=== PATIENT | female | born 1990 | race Caucasian/White ===

== ENCOUNTER 2016-11-11 06:26 | Inpatient (IN) ==
[~2016-11-11 06:26] MED LIST: Famotidine 20 MG/2 ML VIAL IVP PRN; Naloxone 0.4 MG/ML INJ IVP PRN; Ondansetron 4 MG/2 ML VIAL IVP PRN
[2016-11-11] MEDS ORDERED: Ringers Solution, Lactated 1,000 ML IVC SCH (06:30)
--- NOTE | 2016-11-11 06:31 | OB/GYN History & Physical ---
Date of Encounter: 11/11/16 Time of Encounter: 06:28 Assessment and Plan (1) 39 weeks gestation of Current visit: Yes Status: Acute admit for labor (2) Spontaneous onset of labor Current visit: Yes Status: Acute Continue labor management Patient may have Nubain or epidural for pain if desires. History of Present Illness Chief complaint: Spontaneous labor HPI: Ms. Ku is a 26 year old female at 39w3d presents to labor and delivery with complaints of contractions that started around 2200 on the . Patient denies any vaginal bleeding but reports increase in discharge. Patient reports + FM. Patient was 3cm when she was first examined. Patient is now with bulging membranes. Will admit for delivery. Blood type is A+, Rubella: Immune, Hep B: Nonreactive, GBS: Negative. Past Med Surg Social Fam HX - Past Medical History Source: patient Medical history: no medical history Psychiatric history: no psych history - Past Surgical History Surgical History: no surgical history - Social History Smoking Status: Never smoker Smokeless Tobacco Status: No Alcohol use: none Drug use: none Current living situation: Home - Independent Activity Level: Independent ambulation Recent Out of Country Travel Within the Last 8 Weeks: No Exposure or Possible Exposure to Illness During Travel: No - Family History Mother Living Status: Still Living Obstetrical History - Pregnancies : 3 Para: 1 Term: 1 : 0 Ab's: 1 Livin Medications and Allergies Vit/Iron Fumarate/FA [ Tablet] 1 tab PO DAILY 11/11/16 [History ] Allergies Penicillins Allergy (Verified 11/11/16 03:15) Hives Review of System OB - Constitutional Constitutional ROS IM: no chills, no fever(s), no weakness - Cardiovascular Cardiovascular: no chest pain, no edema, no leg edema, no palpitations, no syncope - Respiratory Respiratory: no cough - Gastrointestinal Gastrointestinal: no constipation, no diarrhea, no heartburn, no nausea, no vomiting - Genitourinary Genitourinary: vaginal discharge, no abnormal vaginal bleeding, no dysuria, no flank pain, no urinary frequency, no urinary urgency, no vaginal odor, no vaginal pruritis Exam - Constitutional Constitutional: well developed, well nourished, no acute distress, average body habitus - HEENT HEENT: Normocephaly, Mucus Membranes Moist - Neck Neck exam: full ROM, supple - Lungs Respiratory exam: CTAB - Cardiovascular Cardiovascular exam: RRR, +S1, +S2 - Abdomen Abdomen: Present: bowel sounds normal, gravid, non tender - Extremities Extremities exam: full ROM, normal capillary refill, normal inspection Deep Tendon Reflex Grade: 2+ Normal - Cervix Dilation: 6 Effacement: 90 Station: -1 - Uterus Uterus exam: Present: normal size, normal contour - Anus/Rectum Anus/Rectum: Present: normal perianal skin - Comments Comments: FHR 145bpm moderate variability, +15x15 accels no decels noted. CAt. 1 tracing. Contractions are 3-4 min apart. Results All other labs normal. - VTE Reasons for not Prescribing Prophylaxis: Treatment not Indicated - Low risk for VTE
[2016-11-11] MEDS ORDERED: *HR* Nalbuphine 20 MG/ML AMPUL IVP PRN (06:36)
[2016-11-11 06:49] LABS: Basophils % 0.3 %; Eosinophils # 0.1 K/mcL (0.0-0.6); Eosinophils % 0.5 %; Hematocrit 34.5 % (35.3-44.9); Hemoglobin 11.4 g/dL (11.5-15.4); Immature Granulocytes % 1.6 % (0-4); Lymphocytes # 2.7 K/mcL (0.6-4.6); Lymphocytes % 19.8 %; Mean Corpuscular Hemoglobin 30.6 pg (28.0-33.3); Mean Corpuscular Volume 92.5 fL (83.0-100.0); Mean Platelet Volume 10.1 fL (9.4-12.4); Monocytes # 0.7 K/mcL (0.0-1.3); Monocytes % 4.9 %; Neutrophils # 9.9 K/mcL (1.6-8.9); Platelet Count 224 K/mcL (140-400); Red Blood Count 3.73 M/mcL (3.82-4.97); Red Cell Distribution Width 13.2 % (11.5-14.5); Segmented Neutrophils % 72.9 %
[2016-11-11] MEDS ORDERED: *HR* FentaNYL (PF) 100 MCG/2 ML VIAL ONE (07:44)
[2016-11-11] MEDS ORDERED: Bupivacaine-MPF 0.25% 10 ML VIAL ONE (07:45)
[2016-11-11] MEDS ORDERED: Bupivacaine-MPF 0.25% 10 ML VIAL EP ONE (07:48)
[2016-11-11] MEDS ORDERED: *HR* FentaNYL (PF) 100 MCG/2 ML VIAL EP ONE (07:48)
[2016-11-11] MEDS ORDERED: EPHEDrine 50 MG/ML VIAL ONE (07:49)
[2016-11-11] MEDS ORDERED: Epidural Premix (fent/bupiv) 0 ML EP ONE (07:51)
[2016-11-11] MEDS ORDERED: Epidural Premix (fent/bupiv) 110 ML EP ONE ×2 (07:52→08:19)
[2016-11-11] MEDS ORDERED: Epidural Premix (fent/bupiv) 110 ML EP SCH (08:00)
--- NOTE | 2016-11-11 09:42 | Anesthesia Evaluation PreOp ---
Date of Encounter: 11/11/16 Time of Encounter: 08:00 - Past History Planned Operation: epidural Cardiac History: Denies any Significant Hx Pulmonary History: Denies Any Significant HX [employer] History: Denies Any Significant HX Other Medical History: Denies Any Significant HX Anesthesia History: No Prior Anesthetic Complications (vag delivery x1) : Yes Alcohol Use: none Drug use: none Medications and Allergies Vit/Iron Fumarate/FA [ Tablet] 1 tab PO DAILY 11/11/16 [History ] Allergies Penicillins Allergy (Verified 11/11/16 03:15) Hives - Meds/Allergy Pre-op Review Medications Reviewed: Yes Allergies Reviewed: Yes Beta Blockers on Current Med List: No Anesthesia Results - Labs 11/11/16 06:38 Anesthesia Exam 3 Vital Signs Time 0800 BP 130/81 Pulse 105 Resp 16 O2 Sat 100 Height: 64 Weight: 191 pounds NPO (# of Hours): clears Pain Scale: 6 Pain Scale Used: Numeric (1 - 10) - HEENT Pupil (Motor): Pupils equal Mallampati: II Teeth: Normal Oral Opening: Greater than 3 - [employer] LOC: Oriented [employer] Motor: Normal RUE, Normal LUE, Normal RLE, Normal LLE, Normal Face [employer] Sensory: Normal: RUE, LUE, RLE, LLE, Face - Cardiac Rhythm: Regular Murmur: None JVD: No Carotid Bruit: No - Pulmonary Breath Sounds: bilateral Clear Respiratory Effort: Symmetrical Anesthesia Assess/Plan ASA Score: 2 Modified [place] Scale for Level of Consciousness: Cooperative, oriented, and tranquil Anesthetic Plan: Regional Monitoring Plan: Standard Monitors Recovery Plan: Other
--- NOTE | 2016-11-11 09:46 | Anesthesia Procedures ---
Date of Encounter: 11/11/16 Time of Encounter: 08:34 Procedures: Anesthesia - Epidural/Spinal Patient ID/Chart reviewed: Yes Patient examined: Yes OB Eval: Gestational age: 39 weeks 3 days OB Eval: : 2 OB Eval: Hx Para: 1 OB Eval: Dilated at (cm): 6 OB Eval: Contractions: Non-stressed pattern Consent Obtained: Yes Supplemental Oxygen: None/Room Air Site Prep: Aseptic Technique, Sterile prep and drape, Povidone-Iodine 1% Patient position: upright Local Anesthetic: Lidocaine 1% Amount of Local Anesthetic used: 3 Touhy Needle Gauge: 18 Touhy Needle Depth (cm): 5 Catheter Depth at Skin (cm): 10 Test Dose (1.5% Lido + Epi): Volume given (mls): 3 Test Dose Result: Negative Loading Dose: 0.25% Marcaine (mls): 5 Loading Dose: Fentanyl (mcg): 100 Loading Dose: Other: 3 ml saline Loading Dose Administered: Thru Catheter Infusion Med: 0.125% Bupivacaine w/ 2 mcg/ml Fentanyl Infusion Rate (mls/hr): [address]: Tegaderm, Tape Interspace Used: L3-L4 Loss of Resistance (MALACHI): Yes (air) Blood: No CSF: No Paresthesia: No Procedure: 3 Vital Signs Time 0834 start 0847 cath 0848 test 0858 bolus 0905 BP 120/71 116/73 110/72 117/72 Pulse 107 95 118 105 Resp 16 16 16 16 O2 Sat 100 100 100 100 heart tones 130-140
[2016-11-11] MEDS ORDERED: Oxytocin 20 units/ LR 1000 mL 20 UNIT/1,000 ML BAG IVC ONE ×3 (09:49→18:34)
--- NOTE | 2016-11-11 09:56 | Anesthesia Progress Note ---
Date of Encounter: 11/11/16 Time of Encounter: 09:30 Anesthesia Note - Note Note: 11/11/16 09:53 patient experiencing numbness in right chest region and in right shoulder, epidural pump stopped, pt states not hard to take a deep breath vs stable, t4 sensory loss on right side, left side t8 level, patient able to move legs well, hob elevated. pt comfortable.
--- NOTE | 2016-11-11 09:58 | OB Labor Progress Note ---
Date of Encounter: 11/11/16 Time of Encounter: 09:55 Labor Progress Note - Subjective Subjective: Patient resting in bed. Epidural in place. Patient denies any needs at this time. Discussed POC with patient. Patient denies any questions or concerns. - Cervix Cervix: 7/90/0 - Heart Tones Heart Tones: 135 bpm moderate amount of variability +15x15 accels no decels noted. - [place]: 7-8 min apart - Interventions Interventions: SVE, AROM moderate amount of clear fluid. Patient tolerated well. - Plan Plan: Continue labor management.
--- NOTE | 2016-11-11 12:48 | OB Labor Progress Note ---
Date of Encounter: 11/11/16 Time of Encounter: 12:46 Labor Progress Note - Subjective Subjective: Patient resting comfortable in bed. Patient denies any needs at this time. - Cervix Cervix: 8/100/0 - Heart Tones Heart Tones: 135 bpm moderate variability + 15x15 accels early decels noted. - [place]: 3-5 min apart - Interventions Interventions: SVE - Plan Plan: Continue labor management.
--- NOTE | 2016-11-11 16:30 | OB/GYN Procedure Note ---
Delivery - Delivery Date: 11/11/16 Provider: Mary Jane Gilbert Intrapartum events: none Delivery induction: none Delivery augmentation: rupture of membranes Delivery monitor: external FHT, external uterine Anesthesia: epidural Estimated Blood Loss: 100 - (s) Infant A Delivery Date: 11/11/16 Infant Delivery Time: 15:59 Presentation: vertex Position: KAYLEIGH Route of delivery: Gender: Male Viability: Viable Pounds: 7 Ounces: 6 Weight Gram: 3445 kg at 1 minute: 8 at 5 mins: 9 Shoulder Dystocia: not encountered Placenta: spontaneous Cord: 3 umbilical vessels - Repair Episiotomy: none Laceration Description: Periurethral (right periurethral repaired with 3-0 vicryl) - Complications Delivery complications: none Delivery comments: Called to patient's room. Patient reports feeling pressure. Patient was complete and +2 station. Patient's fonseca catheter was removed, patient was placed in stirrups, vaginal prep was completed. Patient began pushing with contractions. Spontaneous delivery of male infant. No nuchal cord, shoulder dytocia or meconium was encountered. Infant was placed on maternal abdomen. Cord was clamped and cut after pulsations ceased. 3 vessel cord was noted. A right periurethral laceration was repaired with 3-0 vicryl. Placental was spontaneously delivered and intact. Pericare provided. placed skin to skin with mother. Both mother and infant stable in LDR for recovery. - Disposition Mom disposition: stable in LDR disposition: stable in LDR
[2016-11-11] MEDS ORDERED: Acetaminophen 325 MG TABLET PO PRN (18:34)
[2016-11-11] MEDS ORDERED: Lanolin 7 G OINT...G. TP PRN (18:34)
[2016-11-11] MEDS ORDERED: Oxytocin 20 units/ LR 1000 mL 20 UNIT/1,000 ML BAG IV SCH (18:34)
[2016-11-11] MEDS ORDERED: Benzocaine/Menthol 56 GM AEROSOL SPRAY TP PRN (18:34)
[2016-11-11] MEDS ORDERED: *HR* HYDROcodone/Acet 5/325 mg TABLET PO PRN (18:34)
[2016-11-11] MEDS: Ibuprofen 600 MG TABLET PO PRN (20:44)
[2016-11-12] MEDS: Ibuprofen 600 MG TABLET PO PRN ×2 (02:28→14:03)
[2016-11-12] MEDS ORDERED: Prenatal Vit/FA 1 EACH TABLET PO SCH (09:00)
--- NOTE | 2016-11-12 09:34 | Discharge Summary ---
Date of Encounter: 11/12/16 Time of Encounter: 09:31 - Discharge Diagnosis (1) Normal vaginal delivery Priority: Primary Status: Acute Comments: Meeting milestones - Discharge Medications Prescriptions: Ibuprofen [Motrin] 600 mg PO Q6HR PRN #60 tablet PRN Reason: Cramping Docusate [Colace] 100 mg PO BID #60 capsule Home Medications: Vit/Iron Fumarate/FA [ Tablet] 1 tab PO DAILY 11/11/16 [History ] Acetaminophen [Tylenol] 650 mg PO Q6HR PRN #0 tablet 11/12/16 [Rx] Benzocaine/Menthol Whitney [Dermoplast Whitney] 1 appl TP QID PRN #0 aerosol [Rx] Docusate [Colace] 100 mg PO BID #60 capsule 11/12/16 [Rx] Ibuprofen [Motrin] 600 mg PO Q6HR PRN #60 tablet 11/12/16 [Rx] Lanolin [Lansinoh] 1 appl TP TID PRN #0 oint...g. 11/12/16 [Rx] Allergies/Adverse Reactions: Allergies Penicillins Allergy (Verified 11/11/16 03:15) Hives Data Procedures and tests throughout hospitalization: Laboratory Tests 11/11/16 06:38 WBC 13.5 H RBC 3.73 L Hgb 11.4 L Hct 34.5 L MCV 92.5 MCH 30.6 MCHC 33.0 RDW 13.2 Plt Count 224 MPV 10.1 Immature Gran % 1.6 Seg Neutrophils % 72.9 Lymphocytes % 19.8 Monocytes % 4.9 Eosinophils % 0.5 Basophils % 0.3 Neutrophils # 9.9 H Lymphocytes # 2.7 Monocytes # 0.7 Eosinophils # 0.1 Basophils # 0.0 Date of admission: 11/11/16 06:26 Primary care physician: PCP NO Consults: 11/11/16 18:34 Consult to Clerical Manager [CONS] Routine Comment: Vaginal delivery, consult needed Discharging clinician: Mary Ann Resendiz Anticipated date of discharge: 11/12/16 - Patient Status Disposition: Home, Self-Care Condition: Good Functional capacity at discharge: independent ambulation Overall status at discharge: patient is back to baseline - Discharge Instructions Follow Up With: NO,PCP [Primary Care Provider] - Shoemaker,Mary Jane A, CNM [Advanced Practice Nurse] - - Diet and Activity Activity: increase activity as tolerated Diet: regular diet Hospital Course Reason for admission: active labor Episiotomy: none Laceration: other (periuretheral ) Other procedures: none complications: none Discharge diagnosis: IUP at term delivered baby: male Hospital course: [place] - Delivery Date: 11/11/16 Provider: Mary Jane Gilbert Intrapartum events: none Delivery induction: none Delivery augmentation: rupture of membranes Delivery monitor: external FHT, external uterine Anesthesia: epidural Estimated Blood Loss: 100 - Infant (s) A Delivery Date: 11/11/16 Infant Delivery Time: 15:59 Presentation: vertex Position: [place] Route of delivery: Gender: Male Viability: Viable Pounds: 7 Ounces: 6 Weight Gram: 3445 kg at 1 minute: 8 at 5 mins: 9 Shoulder Dystocia: not encountered Placenta: spontaneous Cord: 3 umbilical vessels - Repair Episiotomy: none Laceration Description: Periurethral (right periurethral repaired with 3-0 vicryl) - Complications Delivery complications: none Delivery comments: Called to patient's room. Patient reports feeling pressure. Patient was complete and +2 station. Patient's fonseca catheter was removed, patient was placed in stirrups, vaginal prep was completed. Patient began pushing with contractions. Spontaneous delivery of male infant. No nuchal cord, shoulder dytocia or meconium was encountered. was placed on maternal abdomen. Cord was clamped and cut after pulsations ceased. 3 vessel cord was noted. A right periurethral laceration was repaired with 3-0 vicryl. Placental was spontaneously delivered and intact. Pericare provided. placed skin to skin with mother. Both mother and stable in LDR for recovery. - Disposition Mom disposition: stable in LDR disposition: stable in LDR Time Attestation: Total time spent providing and/or coordinating discharge services: Time Spent: Less than 30 minutes Exam - Constitutional Vitals: Temp Pulse Resp BP Pulse Ox 98.4 F 85 16 107/71 98 11/12/16 08:24 11/12/16 08:24 11/12/16 08:24 11/12/16 08:24 11/12/16 05:05 General appearance IM: A&O X 3, no acute distress - Respiratory Respiratory exam: Present: CTAB. Absent: respiratory distress - Cardiovascular Cardiovascular exam IM: Present: RRR, +S1, +S2 - GI/Abdominal GI/Abdominal exam IM: soft - Uterine Tone: Firm Uterus Position: At Umbilicus - Extremities Exam Extremities exam IM: Present: normal inspection - Neurological Exam Neurological exam: normal gait, oriented X3 - Psychiatric Additional comments: reports good mood
[2016-11-12 16:18] VITALS: BP 112/74
== END 2016-11-12 17:00 | disposition home or self-care (01) | DRG 775 ==
LOC: 1NENULAB → 1NENUOBS 18:33
PROVIDERS: ADMIT Advanced Practice Midwife; ATTEND Advanced Practice Midwife

== ENCOUNTER 2019-08-02 21:17 | Inpatient (IN) ==
[2019-08-02] MEDS ORDERED: Clindamycin 900 MG/50 ML 900 MG/50 ML IV.SOLN IVPB ONE (21:27)
[2019-08-02] MEDS ORDERED: Famotidine 20 MG/2 ML VIAL IVP ONE (21:27)
[2019-08-02] MEDS ORDERED: Gentamicin 340 MG in 0.9 % Sodium Chloride 100 ML IVPB ONE (21:27)
[2019-08-02] MEDS ORDERED: Oxytocin 20 units/ LR 1000 mL 20 UNIT/1,000 ML BAG IVC ONE (21:27)
[2019-08-02] MEDS ORDERED: Metoclopramide 10 MG/2 ML VIAL IVP ONE (21:27)
[2019-08-02] MEDS ORDERED: Ringers Solution, Lactated 1,000 ML IVC SCH (21:30)
[2019-08-02] MEDS ORDERED: Oxytocin 20 units/ LR 1000 mL 20 UNIT/1,000 ML BAG IVC SCH ×2 (21:30→23:45)
[2019-08-02 21:53] LABS: Basophils % 0.3 %; Eosinophils # 0.1 K/mcL (0.0-0.6); Eosinophils % 0.4 %; Immature Granulocytes % 1.1 % (0-4); Lymphocytes # 2.2 K/mcL (0.6-4.6); Lymphocytes % 19.9 %; Mean Corpuscular HGB Conc 35.3 g/dL (31.6-35.5); Mean Corpuscular Hemoglobin 33.1 pg (28.0-33.3); Mean Corpuscular Volume 93.9 fL (83.0-100.0); Mean Platelet Volume 10.4 fL (9.4-12.4); Monocytes # 0.7 K/mcL (0.0-1.3); Monocytes % 5.9 %; Neutrophils # 8.1 K/mcL (1.6-8.9); Platelet Count 232 K/mcL (140-400); Red Blood Count 3.62 M/mcL (3.82-4.97); Red Cell Distribution Width 13.1 % (11.5-14.5); Segmented Neutrophils % 72.4 %; White Blood Count 11.2 K/mcL (4.3-11.1)
[2019-08-02] MEDS ORDERED: FLU Vac QV 19-20 (6Month+)/PF 0.5 ML SYRINGE IM ONE (22:10)
[2019-08-02] MEDS ORDERED: *HR* Phenylephrine 10 MG/ML VIAL ONE (22:20)
[2019-08-02] MEDS ORDERED: Ringers Solution, Lactated 1,000 ML ONE ×2 (22:21→23:43)
[2019-08-02] MEDS ORDERED: *HR* Morphine Sulfate/PF 10 MG/10 ML AMPUL ONE (22:21)
[2019-08-02] MEDS ORDERED: EPHEDrine 50 MG/ML VIAL ONE (22:21)
[2019-08-02] MEDS ORDERED: *HR* FentaNYL (PF) 100 MCG/2 ML VIAL ONE (22:21)
[2019-08-02] MEDS ORDERED: *HR* Oxytocin 10 UNIT/ML VIAL IM ONE ×2 (22:21→23:43)
[2019-08-02] MEDS ORDERED: Dexamethasone 4 MG/ML VIAL ONE (22:25)
[2019-08-02] MEDS ORDERED: Ondansetron 4 MG/2 ML VIAL ONE (22:25)
[2019-08-02] MEDS ORDERED: Ketorolac 30 MG/ML VIAL ONE (23:28)
[2019-08-02] MEDS ORDERED: Lidocaine -MPF 2% 5 ML VIAL ONE (23:33)
[2019-08-02] MEDS ORDERED: Simethicone 80 MG TAB.CHEW PO PRN (23:49)
[2019-08-02] MEDS ORDERED: Ibuprofen 600 MG TABLET PO PRN (23:49)
[2019-08-02] MEDS ORDERED: Metoclopramide 10 MG/2 ML VIAL IVP PRN (23:49)
[2019-08-02] MEDS ORDERED: Ondansetron 4 MG/2 ML VIAL IVP PRN (23:49)
[2019-08-02] MEDS ORDERED: *HR* OxyCODONE/APAP 5/325 TABLET PO PRN (23:49)
[2019-08-02] MEDS ORDERED: Sennosides 8.6 MG TABLET PO PRN (23:49)
[2019-08-03] MEDS ORDERED: Clindamycin 900 MG/50 ML 900 MG/50 ML IV.SOLN IVPB SCH
[2019-08-03] MEDS ORDERED: *HR* Meperidine 25 MG/ML SYRINGE IVP PRN (00:28)
[2019-08-03] MEDS ORDERED: *HR* Promethazine 25 MG/ML VIAL IVP PRN (00:28)
[2019-08-03] MEDS ORDERED: *HR* HYDROmorphone (PF) 1 MG/ML SYRINGE IVP PRN ×2 (00:28→02:53)
[2019-08-03] MEDS ORDERED: Ondansetron 4 MG/2 ML VIAL IVP ONE (00:28)
[2019-08-03] MEDS ORDERED: Acetaminophen IV 1,000 MG/100 ML INFUS..BTL IVPB ONE (00:28)
[2019-08-03] MEDS ORDERED: Metoclopramide 10 MG/2 ML VIAL IVP PRN ×2 (02:15→02:53)
[2019-08-03] MEDS ORDERED: Naloxone 0.4 MG/ML INJ IVP PRN ×2 (02:15→02:53)
[2019-08-03] MEDS ORDERED: Ringers Solution, Lactated 1,000 ML IVC SCH (02:15)
[2019-08-03] MEDS ORDERED: Famotidine 20 MG/2 ML VIAL IVP PRN (02:15)
[2019-08-03] MEDS ORDERED: *HR* Nalbuphine 10 MG/ML AMPUL IVP PRN (02:15)
[2019-08-03] MEDS ORDERED: Lidocaine 1% 20 ML MDV INFILT PRN (02:15)
[2019-08-03] MEDS ORDERED: Acetaminophen 325 MG TABLET PO PRN (02:53)
[2019-08-03] MEDS ORDERED: Rho Immune Globulin 1,500 UNIT SYRINGE IM ONE (02:53)
[2019-08-03] MEDS ORDERED: Sennosides 8.6 MG TABLET PO PRN (02:53)
[2019-08-03] MEDS ORDERED: Ondansetron 4 MG/2 ML VIAL IVP PRN (02:53)
[2019-08-03] MEDS ORDERED: Measles/Mumps/Rubella Vacc 0.5 ML VIAL SQ ONE (02:53)
[2019-08-03] MEDS ORDERED: Simethicone 80 MG TAB.CHEW PO PRN (02:53)
[2019-08-03] MEDS ORDERED: Oxytocin 20 units/ LR 1000 mL 20 UNIT/1,000 ML BAG IVC ONE (02:59)
[2019-08-03] MEDS: Oxytocin 20 units/ LR 1000 mL 20 UNIT/1,000 ML BAG IVC SCH ×5 (07:33→17:45)
[2019-08-03] MEDS: Clindamycin 900 MG/50 ML 900 MG/50 ML IV.SOLN IVPB SCH ×2 (07:46→16:31)
[2019-08-03] MEDS ORDERED: Prenatal Vit/FA 1 EACH TABLET PO SCH (09:00)
[2019-08-03] MEDS ORDERED: Ringers Solution, Lactated 1,000 ML ONE (09:35)
[2019-08-03] MEDS: Ringers Solution, Lactated 1,000 ML IVC ONE ×2 (09:37→17:42)
[2019-08-03] MEDS: Prenatal Vit/FA 1 EACH TABLET PO SCH (15:02)
[2019-08-03] MEDS: Ringers Solution, Lactated 1,000 ML IVC SCH ×2 (15:02→17:42)
[2019-08-03] MEDS: Ibuprofen 600 MG TABLET PO PRN (16:32)
[2019-08-03] MEDS: *HR* OxyCODONE/APAP 5/325 TABLET PO PRN (21:12)
[2019-08-04] MEDS: *HR* OxyCODONE/APAP 5/325 TABLET PO PRN ×3 (02:52→12:56)
[2019-08-04] MEDS: Ibuprofen 600 MG TABLET PO PRN ×2 (05:28→12:55)
[2019-08-04 07:37] VITALS: BP 125/68
[2019-08-04] MEDS: Prenatal Vit/FA 1 EACH TABLET PO SCH (08:12)
[2019-08-04] MEDS ORDERED: FLU Vac QV 19-20 (6Month+)/PF 0.5 ML SYRINGE IM ONE (13:51)
== END 2019-08-04 16:38 | disposition home or self-care (01) | DRG 785 ==
LOC: 1NENULAB 21:17 → 1NENUOBS 08-03 02:42
PROVIDERS: ADMIT Obstetrics & Gynecology; ATTEND Obstetrics & Gynecology